=== PATIENT | male | born 1945 | race Caucasian/White ===

== ENCOUNTER 2016-09-22 09:16 | Inpatient (IN) | payer MEDICARE, OTHER ==
[~2016-09-22] VITALS: Ht 182.9 cm; Wt 104.3 kg
[2016-09-22 10:56] LABS: HEMOGLOBIN 13.4 gm/dl (14.0-17.5); RED BLOOD COUNT 4.18 M/UL (4.20-5.50); WHITE BLOOD COUNT 9.9 K/UL (4.5-11.0)
[2016-09-22 11:08] LABS: BUN/CREATININE RATIO 26 (0-10)
[2016-09-22] MEDS ORDERED: SIMVASTATIN20 MG PO (15:44)
[2016-09-22] MEDS ORDERED: GLUCOPHAGE 500500 MG PO (15:44)
[2016-09-22] MEDS ORDERED: GLUCOTROL5 MG PO (15:45)
[2016-09-22] MEDS ORDERED: MELOXICAM15 MG PO (15:45)
[2016-09-22] MEDS ORDERED: TRAMADOL HCL50 MG PO (15:46)
[2016-09-22] MEDS ORDERED: ZEBETA 5 MG TAB5 MG PO (15:47)
[2016-09-22] MEDS ORDERED: BENICAR HCT 401 EAC1 PO (15:48)
[2016-09-23 06:02] LABS: HEMOGLOBIN 13.8 gm/dl (14.0-17.5); RED BLOOD COUNT 4.28 M/UL (4.20-5.50)
[2016-09-23 06:04] LABS: WHITE BLOOD COUNT 18.1 K/UL (4.5-11.0)
[2016-09-23 06:21] LABS: BUN/CREATININE RATIO 26 (0-10)
--- NOTE | 2016-09-24 12:08 | NUR ---
PATIENT BP OF 74/36 AND HR OF 63 THIS MORNING. I CALLED AND MADE HIM AWARE AND HE STATED TO HOLD ALL BP MEDICATIONS AND HCTZ THIS MORNING AND GIVE HIM A NS BOLUS OF 500ML. I RECHECKED HIS BP AND IT WAS 88/48 MANUALLY AND I CALLED AGAIN WITH THIS. ANOTHER BOLUS OF 500ML WAS ORDERED AND HE TOLD ME TO HOLD THE SCHEDULED PAIN MEDICATION AT THIS TIME DUE TO THE LOW BP.
[2016-09-25 10:45] LABS: WHITE BLOOD COUNT 18.1 K/UL (4.5-11.0)
[2016-09-25 11:06] LABS: HEMOGLOBIN 11.4 gm/dl (14.0-17.5); RED BLOOD COUNT 3.52 M/UL (4.20-5.50)
--- NOTE | 2016-09-25 12:31 | NUR ---
I NOTED FROM LABS THAT WERE DRAWN EARLIER THAT THE PATIENT'S CREATININE HAD INCREASED FROM 1.0 TO 7.0. I IMMEDIATELY WENT AND FOUND AND TOLD HIM. STARTED HIM ON NS AT 100ML/HR AND TOLD ME TO CONSULT NEPHROLOGY. WAS ON THE FLOOR SO I MADE HIM AWARE OF THE PATIENT. ORDERED SOME STAT LABS AND A RENAL ULTRASOUND WHICH I ENTERED INTO ORDERS WELL A BLADDER SCAN WHICH SHOWED 150 ML.
[2016-09-26 05:06] LABS: HEMOGLOBIN 10.1 gm/dl (14.0-17.5); RED BLOOD COUNT 3.16 M/UL (4.20-5.50); WHITE BLOOD COUNT 12.2 K/UL (4.5-11.0)
[2016-09-30 04:37] LABS: RED BLOOD COUNT 3.07 M/UL (4.20-5.50); WHITE BLOOD COUNT 6.2 K/UL (4.5-11.0)
[2016-10-01 06:56] LABS: HEMOGLOBIN 9.6 gm/dl (14.0-17.5); RED BLOOD COUNT 3.04 M/UL (4.20-5.50); WHITE BLOOD COUNT 5.5 K/UL (4.5-11.0)
[2016-10-02 06:20] LABS: HEMOGLOBIN 9.6 gm/dl (14.0-17.5); RED BLOOD COUNT 3.06 M/UL (4.20-5.50); WHITE BLOOD COUNT 5.6 K/UL (4.5-11.0)
[2016-10-04 06:44] LABS: HEMOGLOBIN 8.1 gm/dl (14.0-17.5)
[2016-10-04 06:53] LABS: RED BLOOD COUNT 2.56 M/UL (4.20-5.50); WHITE BLOOD COUNT 7.9 K/UL (4.5-11.0)
[2016-10-04 12:43] LABS: HEMOGLOBIN 8.6 gm/dl (14.0-17.5); RED BLOOD COUNT 2.74 M/UL (4.20-5.50)
[2016-10-04 12:48] LABS: WHITE BLOOD COUNT 14.1 K/UL (4.5-11.0)
[2016-10-05 07:14] LABS: BUN/CREATININE RATIO 25 (0-10); HEMOGLOBIN 7.6 gm/dl (14.0-17.5); RED BLOOD COUNT 2.39 M/UL (4.20-5.50); WHITE BLOOD COUNT 6.9 K/UL (4.5-11.0)
[2016-10-05] MEDS ORDERED: SENOKOT-S TABL1 EACH PO (21:47)
[2016-10-05] MEDS ORDERED: MEGACE400 MG/10 PO (21:48)
[2016-10-05] MEDS ORDERED: MYCOSTATIN100000 UTS PO (21:50)
[2016-10-05] MEDS ORDERED: OXYCONTIN10 MG PO (21:52)
[2016-10-05] MEDS ORDERED: ROXICODONE TAB 55 MG PO (21:53)
[2016-10-05] MEDS ORDERED: PROVENTIL HFA 61 INH INH (21:57)
[2016-10-05] MEDS ORDERED: ROXICODONE5 MG PO (22:01)
== END 2016-10-05 22:25 | disposition home or self-care (01) | DRG 477 ==
LOC: ER1 09:16 → M/S 13:50 → ZEROF 13:50 → M/S 13:50 → PROG CARE 09-24 09:27 → M/S 09-29 13:50
PROVIDERS: Internal Medicine; Internal Medicine Infectious Disease; Internal Medicine Nephrology; Orthopaedic Surgery; Physician Assistant; ADMIT Internal Medicine
PROC: 0PB53ZX Excision of Right Scapula, Percutaneous Approach, Diagnostic (ICD-10-PCS; 2016-09-23)
PROC: 30233H1 Transfusion of Nonautologous Whole Blood into Peripheral Vein, Percutaneous Approach (ICD-10-PCS; 2016-10-03)
PROC: 0QS706Z Reposition Left Upper Femur with Intramedullary Internal Fixation Device, Open Approach (ICD-10-PCS; principal; 2016-10-03 14:00)
DX: C79.51 Secondary malignant neoplasm of bone (principal); N17.0 Acute kidney failure with tubular necrosis; M84.559A Pathological fracture in neoplastic disease, hip, unspecified, initial encounter for fracture; C22.0 Liver cell carcinoma; E87.1 Hypo-osmolality and hyponatremia; E87.4 Mixed disorder of acid-base balance; E78.5 Hyperlipidemia, unspecified; Z87.891 Personal history of nicotine dependence; Z83.3 Family history of diabetes mellitus; Z82.49 Family history of ischemic heart disease and other diseases of the circulatory system; Z79.01 Long term (current) use of anticoagulants; Z79.899 Other long term (current) drug therapy; C80.1 Malignant (primary) neoplasm, unspecified; I10 Essential (primary) hypertension; I95.2 Hypotension due to drugs; T40.2X5A Adverse effect of other opioids, initial encounter; Y92.230 Patient room in hospital as the place of occurrence of the external cause; Z66 Do not resuscitate; K59.00 Constipation, unspecified; E87.5 Hyperkalemia; E11.65 Type 2 diabetes mellitus with hyperglycemia; B37.9 Candidiasis, unspecified; L25.9 Unspecified contact dermatitis, unspecified cause; D69.6 Thrombocytopenia, unspecified
CPT/HCPCS: 36415; 71260; 72100; 73030; 73502; 73560; 74000; 76000; 77012; 80048; 80053; 81001; 82043; 82105; 82150; 82378; 82533; 82550; 82570; 82607; 82728; 82746; 82800; 82803; 82962; 83036; 83540; 83550; 83605; 83690; 83735; 84100; 84153; 84439; 84443; 84484; 85025; 85027; 85610; 85730; 86301; 86850; 86900; 86901; 86920; 87070; 87077; 87205; 88341; 88342; 93005; 94640; 94664; 96374; 96375; 97110; 97116; 97530; 97535; 99284; C1713; C1769; G0378; J0690; J1650; J2270; J2405; J2710; J2795; J7030; J7040; J7050; J7070; J7120; P9016; Q9962; Q9965